=== PATIENT | male | born 1960 | race Caucasian/White ===

== ENCOUNTER 2022-09-25 15:34 | Emergency (ER) | payer BC, OTHER ==
[2022-09-25 15:39] VITALS: TEMP 98.1
--- NOTE | 2022-09-25 16:28 | XR ---
EXAMINATION TYPE: XR chest 2V DATE OF EXAM: 09/25/2022 COMPARISON: None HISTORY: 62-year-old male with chest pain TECHNIQUE: PA and lateral views FINDINGS: The cardiomediastinal silhouette, aorta, and pulmonary vasculature are within normal limits. Lungs an d pleural spaces are clear. IMPRESSION: No acute cardiopulmonary process.
[2022-09-25 16:33] LABS: Basophils % (A) 0 %; Eosinophils # (A) 0.3 k/uL (0-0.7); Eosinophils % (A) 3 %; HCT 43.6 % (39.0-53.0); HGB 14.2 gm/dL (13.0-17.5); Lymphocytes # (A) 1.9 k/uL (1.0-4.8); Lymphocytes % (A) 22 %; MCH 29.9 pg (25.0-35.0); MCHC 32.7 g/dL (31.0-37.0); MCV 91.5 fL (80.0-100.0); Mean Platelet Volume 8.6; Monocytes # (A) 0.6 k/uL (0-1.0); Monocytes % (A) 6 %; Neutrophils # (A) 5.9 k/uL (1.3-7.7); Neutrophils % (A) 66 %; Platelet Count 251 k/uL (150-450); RBC 4.76 m/uL (4.30-5.90); RDW 12.4 % (11.5-15.5); WBC 8.9 k/uL (3.8-10.6)
[2022-09-25 16:48] LABS: ALT 19 U/L (4-49); AST 25 U/L (17-59); African American GFR (CKD) >90 (>60 ml/min/1.73 sqM); Albumin 4.1 g/dL (3.5-5.0); Alkaline Phosphatase 41 U/L (38-126); Anion Gap 8 mmol/L; Blood Urea Nitrogen 17 mg/dL (9-20); Calcium 9.2 mg/dL (8.4-10.2); Carbon Dioxide 24 mmol/L (22-30); Chloride 107 mmol/L (98-107); Glucose 99 mg/dL (74-99); Non-African American GFR(CKD) 82 (>60 ml/min/1.73 sqM); Potassium 3.8 mmol/L (3.5-5.1); Sodium 139 mmol/L (137-145); Total Bilirubin 0.6 mg/dL (0.2-1.3); Total Protein 7.2 g/dL (6.3-8.2)
--- NOTE | 2022-09-25 16:48 | ED ---
Chest Pain HPI - General Source: patient, RN notes reviewed Mode of arrival: ambulatory Limitations: no limitations <Smita Martinez - Last Filed: 09/25/22 16:49> <Jim Lindsey - Last Filed: 09/26/22 02:02> - General Chief Complaint: Chest Pain Stated Complaint: chest pain Time Seen by Provider: 09/25/22 16:46 - History of Present Illness Initial Comments: Patient is a 62-year-old male who presents to the emergency department with a chief complaint of chest pain. Patient reports sharp pain in the center of his chest only with coughing. Patient has had intermittent dry cough for the past 2 weeks. States his chest is tender when he pushes on it. He denies back pain, shortness of breath. Patient also reports burning in his upper middle abdomen. It is sometimes worsened with food intake. He denies history of acid reflux. No nausea or vomiting. No diarrhea or bloody stools. Patient states he was diagnosed with an aortic aneurysm in September. He does not have any further information about his diagnosis. He cannot recall when he had his last stress test or echocardiogram. He does smoke half a pack of cigarettes daily. He has history of hypertension and hyperlipidemia. He denies history of heart attack. (Smita Martinez) Patient is a 62-year-old male with past medical history that is remarkable for hypertension, hyperlipidemia, aortic aneurysm. Not much documentation in our system on him. Presents over concern for on-again off-again chest pain for 2 Weeks. It is reproducible on palpation. Located along his sternum. Denies any associated shortness of breath, nausea, vomiting, abdominal pain. Pain is worse with coughing or deep breaths. Denies any history of blood clots, lower extremity edema. Denies any other acute complaints at this time. Presents over concern for his heart, as he does have the known history of the aneurysm and he is concerned regarding it. Patient seen after workup was started in triage as a quick note. (Jim Lindsey) - Related Data Home Medications Medication Instructions Recorded Confirmed Rosuvastatin [Crestor] 10 mg PO DAILY 09/25/22 09/25/22 atenoloL [Tenormin] 50 mg PO DAILY 09/25/22 09/25/22 lisinopriL [Prinivil] 10 mg PO DAILY 09/25/22 09/25/22 Allergies Allergy/AdvReac Type Severity Reaction Status Date / Time No Known Allergies Allergy Verified 09/25/22 15:39 Review of Systems ROS Other: All systems not noted in ROS Statement are negative. <Smita Martinez - Last Filed: 09/25/22 16:49> ROS Other: All systems not noted in ROS Statement are negative. <Jim Lindsey - Last Filed: 09/26/22 02:02> ROS Statement: Those systems with pertinent positive or pertinent negative responses have been documented in the HPI. EKG Findings - EKG Comments: EKG Findings:: 12-lead Electrocardiogram Interpretation Note. EKG was reviewed and interpreted by myself. 12-lead ECG performed at 1553 is interpreted by me as revealing normal sinus rhythm at a rate of 72 beats per minute. [place] is normal. VT interval is 192 ms, QRS duration is 92 ms, QTc is 415 ms.. There were no ST or T wave abnormalities to suggest myocardial ischemia or injury. R wave progression across the precordium was satisfactory. By my interpretation this EKG is non-diagnostic for acute ischemia. - EKG Results: EKG: interpreted by ERMD <Jim Lindsey - Last Filed: 09/26/22 02:02> Past Medical History Past Medical History: Hyperlipidemia, Hypertension Additional Past Medical History / Comment(s): heart murmur History of Any Multi-Drug Resistant Organisms: None Reported Past Surgical History: No Surgical Hx Reported Past Psychological History: No Psychological Hx Reported Smoking Status: Current every day smoker Past Alcohol Use History: None Reported Past Drug Use History: Marijuana <Smita Martinez - Last Filed: 09/25/22 16:49> General Exam Limitations: no limitations <Smita Martinez - Last Filed: 09/25/22 16:49> <Jim Lindsey - Last Filed: 09/26/22 02:02> - General Exam Comments Initial Comments: Visual Physical Exam Vital signs reviewed General: Well-appearing, nontoxic, no acute distress. Head: Normocephalic, atraumatic Eyes: PERRLA, EOMI ENT: Airway patent Chest: Nonlabored breathing Skin: No visual rash, normal skin tone Neuro: Alert and oriented 3 Musculoskeletal: No gross abnormalities (Smita Martinez) General: Appears in no acute distress. HEAD: Normal with no signs of head trauma. EYES: PERRLA, EOMI, conjunctiva normal, no discharge. ENT: Hearing grossly intact, normal oropharynx. RESPIRATORY: Clear breath sounds bilaterally. No wheezes, rales, or rhonchi. C/V: Regular rate and rhythm. S1 and S2 auscultated, no edema, peripheral pulses 2+ and intact throughout ABD: Abd is soft, nontender, nondistended EXT: Normal range of motion, no obvious deformity. Chest pain is reproducible on palpation along the sternum. SKIN: No rashes or lesions observed on exposed skin. NEURO: Oriented 4. (Jim Lindsey) Course Vital Signs 09/25/22 09/25/22 09/25/22 15:36 19:32 20:00 Temperature 98.1 F Pulse Rate 70 66 69 Respiratory 20 16 16 Rate Blood Pressure 157/97 173/114 150/98 O2 Sat by Pulse 98 98 98 Oximetry 09/25/22 09/25/22 09/25/22 20:30 21:00 21:30 Temperature Pulse Rate 59 L 57 L 52 L Respiratory 18 19 16 Rate Blood Pressure 186/106 166/103 166/102 O2 Sat by Pulse Oximetry 09/25/22 21:45 Temperature Pulse Rate 52 L Respiratory 16 Rate Blood Pressure 157/96 O2 Sat by Pulse 99 Oximetry Chest Pain MDM <Jim Lindsey - Last Filed: 09/26/22 02:02> - MDM Was pt. sent in by a medical professional or institution (Dr. PA, CROWN POUNCER, urgent care, hospital, or assisted...) When possible be specific @ -No Did you speak to anyone other than the patient for history (EMS, parent, family, police, friend...)? What history was obtained from this source @ -No Did you review nursing and triage notes (agree or disagree)? Why? @ -I reviewed and agree with nursing and triage notes Were old charts reviewed (outside hosp., previous admission, EMS record, old EKG, old radiological studies, urgent care reports/EKG's, assisted records)? Report findings @ -No old charts were reviewed Differential Diagnosis (chest pain, altered mental status, abdominal pain women, abdominal pain men, vaginal bleeding, weakness, fever, dyspnea, syncope, headache, dizziness, GI bleed, back pain, seizure, CVA, palpatations, mental health, musculoskeletal)? @ -Differential Chest Pain: Stable Angina, Unstable Angina, STEMI, NSTEMI Aortic Dissection, Pneumothorax, Musculoskeletal, Esophageal Spasm GERD, Cholecystitis, Pancreatitis, Zoster, this is not meant to be an all-inclusive list. EKG interpreted by me (3pts min.). @ -As above X-rays interpreted by me (1pt min.). @ -Chest x-ray reveals no obvious department process. CT interpreted by me (1pt min.). @ -CT of the aorta reveals the known aortic aneurysm that is 3.2 cm with no evidence of dissection. No evidence of fracture. U/S interpreted by me (1pt. min.). @ -None done What testing was considered but not performed or refused? (CT, X-rays, U/S, labs)? Why? @ -None What meds were considered but not given or refused? Why? @ -None Did you discuss the management of the patient with other professionals (professionals i.e. , PA, CROWN POUNCER, lab, RT, psych nurse, social media developer, manager procurement, teacher, ordnance officer, case therapist)? Give summary @ -No Was smoking cessation discussed for >3mins.? @ -No Was critical care preformed (if so, how long)? @ -No Were there social determinants of health that impacted care today? How? (Homelessness, low income, unemployed, alcoholism, drug addiction, transportation, low edu. Level, literacy, decrease access to med. care, assisted, rehab)? @ -No Was there de-escalation of care discussed even if they declined (Discuss DNR or withdrawal of care, Hospice)? DNR status @ -No What co-morbidities impacted this encounter? (DM, HTN, Smoking, COPD, CAD, Cancer, CVA, ARF, Chemo, Hep., AIDS, mental health diagnosis, sleep apnea, morbid obesity)? @ -aortic aneurysm Was patient admitted / discharged? Hospital course, mention meds given and route, prescriptions, significant lab abnormalities, going to OR and other pertinent info. @ -Based on the patient's presentation and physical exam, I'm concerned for possible cardiac etiology for his current symptoms. Does however appear to be mostly skeletal nature. Workup was started in triage and I evaluated the patient when he was placed in a room. Vital signs within acceptable limits. Patient's labs are within normal limits, including an undetectable troponin, normal EKG, as well as chest x-ray that is unremarkable. Patient's concerned regarding his aneurysm and as we have no documented evidence of this aneurysm and are imaging, I would like to obtain a CT angiogram to evaluate. He was in agreement this plan. Patient was given a small dose of morphine for his chest pain. Patient's CT revealed a abdominal aortic aneurysm size 3.2 cm. It is not large enough to intervene on at this time. I did discuss these findings with the patient. He states he believes this is approximately the size it was 6 months ago. Recommended follow up for further imaging to monitor it. He access understanding was in agreement this plan. Patient's chest pain has resolved following analgesia. We discussed was likely chest wall pain. Has had symptoms for 2 weeks, and pain is reproducible on palpation and resolves with pain medication. Heart scores low. I believe it is safer to be discharged home. He was in agreement this plan. Strict return precautions discussed. I instructed the patient to follow up with their PCP in the next 1-3 days. I explained that the patient should return to the emergency department if they experience any worsening symptoms. Strict return precautions were discussed with the patient. The patient expressed understanding of these instructions. I answe red all questions that the patient had. The patient was discharged home in good condition with their prescriptions and follow up information. Undiagnosed new problem with uncertain prognosis? @ -No Drug Therapy requiring intensive monitoring for toxicity (Heparin, Nitro, Insulin, Cardizem)? @ -No Were any procedures done? @ -No Diagnosis/symptom? @ -Chest Wall pain Acute, or Chronic, or Acute on Chronic? @ -Acute Uncomplicated (without systemic symptoms) or Complicated (systemic symptoms)? @ -Uncomplicated Side effects of treatment? @ -No Exacerbation, Progression, or Severe Exacerbation? @ -No Poses a threat to life or bodily function? How? (Chest pain, [place], [place], pneumonia, PE, COPD, DKA, ARF, appy, cholecystitis, CVA, Diverticulitis, Homicidal, Suicidal, threat to staff... and all critical care pts) @ -No Diagnosis/symptom? @ -AAA Acute, or Chronic, or Acute on Chronic? @ -Chronic Uncomplicated (without systemic symptoms) or Complicated (systemic symptoms)? @ -Uncomplicated Side effects of treatment? @ -none Exacerbation, Progression, or Severe Exacerbation] @ -no Poses a threat to life or bodily function? @ -If it enlarges, yes it does cause a threat to life. (Jim Lindsey) Disposition <Smita Martinez - Last Filed: 09/25/22 16:49> Is patient prescribed a controlled substance at d/c from ED?: No Time of Disposition: 21:30 <Jim Lindsey - Last Filed: 09/26/22 02:02> Clinical Impression: Chest wall pain, AAA (abdominal aortic aneurysm) Disposition: HOME SELF-CARE Condition: Good Instructions (If sedation given, give patient instructions): Chest Pain (ED) Referrals: Parviz Watters MD [Primary Care Provider] - 1-2 days
[2022-09-25 16:51] LABS: Partial Thromboplastin Time 26.4 sec (22.0-30.0); Prothrombin Time 10.6 sec (9.0-12.0)
[2022-09-25] MEDS ORDERED: MORPHINE SULFATE 2 MG/ML SYRINGE IVP STA (20:00)
[2022-09-25 20:04] VITALS: RESP 16
--- NOTE | 2022-09-25 20:49 | CT ---
EXAMINATION TYPE: CT angio thor/abd pel aorta CT DLP: 1818.8 mGycm, Automated exposure control for dose reduction was used. DATE OF EXAM: 09/25/2022 8:30 PM COMPARISON: None. CLINICAL INDICATION:Male, 62 years old with history of history of aneurysm, chest pain, Chest pain x 1 week. TECHNIQUE: Dissection protocol: Multiple axial CT images of the chest, abdomen, and pelvis were obtai elaina prior and to the administration of IV contrast. 3-D reformats and maximum intensity projection fo rmat were performed on a separate workstation. Contrast used:100 cc mL of Isovue 370 without and with IV Contrast, Oral contrast used: None FINDINGS: ARTERIAL VASCULATURE: No evidence for intramural hematoma on noncontrast imaging. The thoracic aorta is normal in course and caliber. There is no evidence of aortic dissection, aneurysm or acute aortic injury. Great arch vessels patent and normal in course and caliber. Visualized abdominal aorta demons trates infrarenal fusiform dilation of the aorta measuring up to 2.9 x 3.3 cm. There is scattered ath erosclerosis of the aorta. The origins of the vessels of the abdominal aorta great vessels are patent . Fusiform dilation of the left common iliac artery up to 1.4 cm and on the right up to 1.4 cm. PULMONARY ARTERIAL VASCULATURE: Normal caliber. No evidence of filling defect to suggest pulmonary em bolus. VENOUS SYSTEM: Unremarkable. Lungs/pleura: Mild to moderate centrilobular emphysema changes seen throughout the lungs. Heart: Within normal limits. Mediastinum: No gross evidence of adenopathy. Lower Neck: No significant findings. Abdomen: Liver: Scattered low density probable hepatic cysts. Gallbladder and Bile ducts: Unremarkable. Pancreas: Unremarkable. Spleen: Unremarkable. Adrenal glands: Unremarkable. Kidneys and Ureters: Unremarkable. No hydronephrosis. Bladder: Unremarkable. Reproductive: Prostate is enlarged projected to 5.6 cm. There is median lobe hypertrophy changes. Stomach and Bowel: Unremarkable. No evidence of bowel obstruction. The appendix is normal. Peritoneum: No evidence of pneumoperitoneum, free fluid, or adenopathy. Musculoskeletal: The osseous structures appear intact. Mild multilevel disc degeneration changes thro ughout the spine. Lymph nodes: No evidence of lymphadenopathy. Abdominal wall/soft tissues: Bilateral fat-containing inguinal hernia. Fat-containing umbilical herni a. IMPRESSION: 1. Fusiform infrarenal aortic aneurysm measuring up to 3.2 cm. 2. No evidence for ascending or descending thoracic aortic aneurysm. 3. This form dilation of the common iliac arteries bilaterally up to 1.4 cm 4. No evidence for dissection. 5. Fat-containing umbilical and bilateral inguinal hernias. 6. Prostatomegaly correlate serum PSA. 7. Mild to moderate centrilobular emphysema.
[2022-09-25 21:31] VITALS: PULSE 52
[2022-09-25 21:46] VITALS: BP 157/96
== END 2022-09-25 21:46 | disposition home or self-care (01) ==
LOC: EC 15:34
DX: R07.89 Other chest pain (principal); I71.40 Abdominal aortic aneurysm, without rupture, unspecified; I10 Essential (primary) hypertension; E78.5 Hyperlipidemia, unspecified; F17.210 Nicotine dependence, cigarettes, uncomplicated; F12.90 Cannabis use, unspecified, uncomplicated; Z79.899 Other long term (current) drug therapy; Z20.822 Contact with and (suspected) exposure to COVID-19
CPT/HCPCS: 99285; 96374; 36415; 93005; 83880; 80053; 84484; 85025; 85610; 85730; 87636; 71046; 71275; 74174; J2270; Q9967